=== PATIENT | male | born 1990 | race Caucasian/White ===

== ENCOUNTER 2018-11-14 11:25 | Emergency (ER) | payer SELFPAY ==
[2018-11-14] MEDS ORDERED: Fluorescein 0.6 MG Ophth Strip EYERT ONE (11:56)
[2018-11-14] MEDS ORDERED: Erythromycin Base 0.5% Ophth Oint 1 GM Tube EYERT ONE (11:56)
--- NOTE | 2018-11-14 11:59 | EDM.PDOC ---
ED HPI GENERAL MEDICAL PROBLEM - General Chief Complaint: Eye Problems Stated Complaint: FB IN R EYE Time Seen by Provider: 11/14/18 11:47 Source of Information: Reports: Patient History Limitations: Reports: No Limitations - History of Present Illness INITIAL COMMENTS - FREE TEXT/NARRATIVE: Patient is a 28-year-old male who presents to the ED with a foreign object in his right eye. States this past Wednesday he was using a grinding stone and was grinding metal. While grinding he had the sensation of a metal piece into his eye. Over the course of the weekend he has flushed his eye. Has noticed a brown speck to the right eye with sensitivity to bright light. There has been no vision changes. He has been rubbing his eye. Has noticed some redness to the white portion of his eye to the right side of the right eye. He was not wearing safety glasses. Tetanus status is not up to date. Right Eye Pain Score (Numeric/FACES): 3 - Related Data Allergies Allergy/AdvReac Type Severity Reaction Status Date / Time No Known Allergies Allergy Verified 11/14/18 11:35 Home Meds: Home Meds . [No Known Home Meds] 11/14/18 [History] Past Medical History - Past Health History Medical/Surgical History: Denies Medical/Surgical History Social & Family History - Tobacco Use Smoking Status *Q: Current Every Day Smoker Years of Tobacco use: 5 Packs/Tins Daily: 0.2 ED ROS GENERAL - Review of Systems Review Of Systems: ROS reveals no pertinent complaints other than HPI. ED EXAM GENERAL W FULL EYE - Physical Exam Exam: See Below Exam Limited By: No Limitations General Appearance: Alert, WD/WN, No Apparent Distress Eye Exam: Bilateral Eye: EOMI, PERRL, Vision Changes (none stated) Visual Acuity (R) 20/: 70 Visual Acuity (L) 20/: 70 With Correction: No IOP (R) in mmH IOP (L) in mmH IOP Measure with (Equipment): Other Eyelids: Right: Infraorbital Anesthesia, Lid Everted for Exam, Bilateral: Normal Appearance Conjunctiva & Sclera: Right: Injected Cornea Exam: Right: Corneal Abrasion (none noted), Foreign Body (9 oclock position), Examined with Flourescein, Other (slit lamp) Extraocular Movements: Bilateral: Intact Pupillary Size: Bilateral: 3 mm Pupillary Reaction: Bilateral: Brisk Anterior Chamber: Bilateral: Normal Appearance Ears: Hearing Grossly Normal Nose: Normal Inspection Throat/Mouth: Normal Voice, No Airway Compromise Neck: Normal Inspection, Supple Respiratory/Chest: No Respiratory Distress, No Accessory Muscle Use Cardiovascular: Normal Peripheral Pulses, Regular Rate, Rhythm Neurological: Alert, Oriented, CN II-XII Intact, Normal Cognition, No Motor/ Sensory Deficits Psychiatric: Normal Affect, Normal Mood Skin Exam: Warm, Dry, Normal Color, No Rash Course - Vital Signs Last Recorded V/S: Last Vital Signs Temp 98.7 F 11/14/18 11:32 Pulse 77 11/14/18 11:32 Resp 18 11/14/18 11:32 BP 162/81 H 11/14/18 11:32 Pulse Ox 98 11/14/18 11:32 - Orders/Labs/Meds Orders: Active Orders 24 hr Category Date Time Status Vaccines to be Administered [RC] PER UNIT ROUTINE Care 11/14/18 12:46 Active Meds: Medications Discontinued Medications Generic Name Dose Route Start Last Admin Trade Name Mark PRN Reason Stop Dose Admin Diphtheria/Tetanus/Acell Pertussis 0.5 ml 11/14/18 12:46 11/14/18 12:54 Adacel IM 11/14/18 12:47 0.5 ml .ONCE ONE Administration Erythromycin 1 gm 11/14/18 11:56 11/14/18 12:16 Erythromycin 0.5% Ophth Oint EYERT 11/14/18 11:57 1 ea ONETIME ONE Administration Fluorescein Sodium 0.6 mg 11/14/18 11:56 11/14/18 12:17 Ful-Lay EYERT 11/14/18 11:57 0.6 mg ONETIME ONE Administration - Re-Assessments/Exams Free Text/Narrative Re-Assessment/Exam: Small dark michael of unknown substance suspected metal to the 9 o clock position of the iris. Proparacaine applied with adequate anesthesia. Used a q tip and was able to gently remove a small portion of the michael. Suspect the metal has been removed but he rust ring/burned area remains. Intraocular pressures 16 bilaterally. Visual acuity 20/70 right and left eye, both 20/40. He does not wear contacts or glasses. Fluorescein strip has been ordered. Proparacaine with fluorescein stain applied. No corneal abrasions noted. Rust ring noted to be 9 o'clock position. Utilizee the eye bur with approximately 60 % of the rust ring removed. Erythromycin ointment has been applied. Tetanus update has been ordered. Patient will make appointment with hospital scientist of his choice. Will utilize erythromycin ointment and NSAIDs up until evaluation. Discussed return precautions with the patient. He had no questions concerns. Departure - Departure Time of Disposition: 12:45 Disposition: Home, Self-Care 01 Condition: Good Clinical Impression: Foreign body, eye Qualifiers: Encounter type: initial encounter Laterality: right Qualified Code(s): T15.91XA - Foreign body on external eye, part unspecified, right eye, initial encounter - Discharge Information Instructions: Eye Foreign Body Referrals: PCP,None [Primary Care Provider] - Forms: ED Department Discharge Additional Instructions: Apply 1 cm ribbon to the right eye of the erythromycin ointment 4-6 times a day. Call and make an appointment with hospital scientist of your choice for evaluation in 2 days. Utilize ibuprofen and Tylenol in alternating fashion for pain. Please return back to ED if you develop any new or worsening symptoms. Do not rub the affected eye. - My Orders Last 24 Hours: My Active Orders 11/14/18 12:46 Vaccines to be Administered [RC] PER UNIT ROUTINE - Assessment/Plan Last 24 Hours: My Active Orders 11/14/18 12:46 Vaccines to be Administered [RC] PER UNIT ROUTINE
[2018-11-14] MEDS ORDERED: Diphtheria,Pertussis(Acell),Tetanus Vaccine 0.5 ML Syringe IM ONE (12:46)
== END 2018-11-14 12:59 | disposition home or self-care (01) ==
LOC: JD.ED 11:25
DX: T15.01XA Foreign body in cornea, right eye, initial encounter (principal); Z23 Encounter for immunization
CPT/HCPCS: 65222; 90471; 90700; 99283; A9270; 65205

== ENCOUNTER 2019-02-11 21:44 | Emergency (ER) | payer SELFPAY ==
[2019-02-11] MEDS ORDERED: Famotidine 20 MG Tab ONE (23:28)
--- NOTE | 2019-02-12 05:21 | EDM.PDOC ---
ED HPI GENERAL MEDICAL PROBLEM - General Chief Complaint: General Stated Complaint: FEELS LIKE HE IS GOING TO PASS OUT/TINGLING IN ARM Time Seen by Provider: 02/11/19 23:20 - History of Present Illness INITIAL COMMENTS - FREE TEXT/NARRATIVE: 28-year-old male presents emergency room feeling dizzy and lightheaded. This improved after eating. Patient has had multiple episodes like this but had a remarkably more severe episode this evening. The patient eats one meal a day. He felt a little anxious fuzzy in the head and developed some tingling in his extremities mostly his upper extremities. He has some stomach upset this is worse with this episode but this seems to be more of a chronic condition for him he used to be on Nexium in the past however stopped it some time back. - Related Data Allergies Allergy/AdvReac Type Severity Reaction Status Date / Time No Known Allergies Allergy Verified 11/14/18 11:35 Home Meds: Home Meds . [No Known Home Meds] 11/14/18 [History] Past Medical History - Past Health History Medical/Surgical History: Denies Medical/Surgical History Social & Family History - Tobacco Use Smoking Status *Q: Current Every Day Smoker Years of Tobacco use: 12 Packs/Tins Daily: 0.3 - Caffeine Use Caffeine Use: Reports: Coffee, Energy Drinks, Soda - Recreational Drug Use Recreational Drug Use: No ED ROS GENERAL - Review of Systems Review Of Systems: See Below Constitutional: Reports: No Symptoms HEENT: Reports: No Symptoms Respiratory: Reports: No Symptoms Cardiovascular: Denies: Chest Pain, Palpitations GI/Abdominal: Denies: Constipation, Diarrhea, Nausea, Vomiting : Reports: No Symptoms Skin: Reports: No Symptoms Neurological: Reports: Dizziness, Numbness ED EXAM, GENERAL - Physical Exam Exam: See Below Exam Limited By: No Limitations General Appearance: Alert, No Apparent Distress Head: Atraumatic, Normocephalic Neck: Normal Inspection, Supple, Non-Tender, Full Range of Motion Respiratory/Chest: No Respiratory Distress, Lungs Clear, Normal Breath Sounds Cardiovascular: Regular Rate, Rhythm, No Edema, No Murmur GI/Abdominal: Normal Bowel Sounds, No Distention, Tender (Mild epigastric). No : Guarding, Rigid, Rebound EKG INTERPRETATION EKG Date: 02/12/19 Rhythm: NSR [place]: Normal P-Wave: Present QRS: Normal ST-T: Normal QT: Normal Comparison: NA - No Prior EKG Course - Vital Signs Last Recorded V/S: Last Vital Signs Temp 36.8 C 02/11/19 21:56 Pulse 60 02/12/19 00:20 Resp 16 02/12/19 00:20 BP 119/79 02/12/19 00:20 Pulse Ox 100 02/12/19 00:20 - Orders/Labs/Meds Meds: Medications Discontinued Medications Generic Name Dose Route Start Last Admin Trade Name Mark PRN Reason Stop Dose Admin Famotidine Confirm 02/11/19 23:28 Pepcid Administered 02/11/19 23:29 Dose 20 mg .ROUTE .STK-MED ONE - Re-Assessments/Exams Free Text/Narrative Re-Assessment/Exam: 02/12/19 05:24 Discussed laboratory evaluation the patient agrees is probably be of minimal benefit and he would like to hold off Departure - Departure Time of Disposition: 00:22 Disposition: Home, Self-Care 01 Clinical Impression: Hypoglycemia, Dyspepsia - Discharge Information Referrals: PCP,None [Primary Care Provider] - Forms: ED Department Discharge Additional Instructions: See handwritten discharge instructions
== END 2019-02-12 00:20 | disposition home or self-care (01) ==
LOC: JD.ED 21:44
DX: E16.2 Hypoglycemia, unspecified (principal); R10.13 Epigastric pain; F17.210 Nicotine dependence, cigarettes, uncomplicated
CPT/HCPCS: 99283; A9270; 93010; 99282